=== PATIENT | male | born 1975 | race Caucasian/White ===

== ENCOUNTER 2017-10-16 10:35 | Inpatient (IN) | payer OTHER ==
[~2017-10-16] VITALS: Ht 185.4 cm; Wt 99.5 kg
[2017-10-16 10:47] LABS: BASOPHIL (%) 0.6 % (0-1); EOSINOPHIL (%) 1.7 % (0-5); EOSINOPHIL COUNT 0.1 K/uL (0-0.3); HEMOGLOBIN 15.3 G/DL (12.5-16.6); IMMATURE GRANULOCYTE (%) 1.8 % (0.0-0.7); LYMPHOCYTE COUNT 2.2 K/uL (1.0-2.8); MCH 30.3 PG (29.0-34.0); MCHC 34.8 G/DL (30.0-36.0); MCV 87.1 FL (86-99); MONOCYTE (%) 6.4 % (3-12); MONOCYTE COUNT 0.4 K/uL (0-0.8); NEUTROPHIL (%) 56.5 % (45-76); NEUTROPHIL COUNT 3.7 K/uL (1.8-6.4); PLATELET COUNT 226 K/uL (156-360); RBC DIS.WIDTH-CV 12.4 % (11.8-14.6); RBC DIS.WIDTH-SD 39.6 % (39-53); RED BLOOD COUNT 5.05 M/uL (4.00-5.50); WHITE BLOOD COUNT 6.6 K/uL (4.1-10.2)
[2017-10-16 10:59] LABS: AMYLASE 32 IU/L (1-118); CHLORIDE 106 mEq/L (99-109); POTASSIUM 3.9 mEq/L (3.7-5.4); SODIUM 138 mEq/L (136-147)
[2017-10-16 11:01] LABS: GLUCOSE 120 mg/dL (70-99)
[2017-10-16 11:04] LABS: CREATININE 1.1 mg/dL (0.6-1.3); GFR ESTIMATE (CALCULATED) > 59 mL/min/ (58.99-99999); SERUM ETHYL ALCOHOL < 10 mg/dL
[2017-10-16 11:05] LABS: UREA NITROGEN (BUN) 16 mg/dL (9-23)
[2017-10-16 11:07] LABS: LIPASE 28 U/L (1.0-51.0)
[2017-10-16 17:03] VITALS: BP 124/80
[2017-10-16 19:55] VITALS: BP 125/78
[2017-10-16 23:39] VITALS: BP 136/89
[2017-10-17 03:58] VITALS: BP 144/81
[2017-10-17 06:30] LABS: HEMATOCRIT 41.1 % (38.0-50.0); HEMOGLOBIN 13.8 G/DL (12.5-16.6); MCH 30.5 PG (29.0-34.0); MCHC 33.6 G/DL (30.0-36.0); MCV 90.7 FL (86-99); PLATELET COUNT 163 K/uL (156-360); RBC DIS.WIDTH-CV 12.7 % (11.8-14.6); RBC DIS.WIDTH-SD 42.5 % (39-53); RED BLOOD COUNT 4.53 M/uL (4.00-5.50); WHITE BLOOD COUNT 8.6 K/uL (4.1-10.2)
[2017-10-17 07:09] LABS: ALBUMIN 3.8 G/DL (3.2-4.8); ALKALINE PHOSPHATASE 48 IU/L (3-129); ALT (GPT) 14 IU/L (3-49); AST (GOT) 22 IU/L (2-34); CHLORIDE 105 MEQ/L (99-109); CREATININE 0.9 MG/DL (0.6-1.3); GFR ESTIMATE (CALCULATED) > 59 mL/min/ (58.99-99999); GLUCOSE 108 mg/dL (70-99); POTASSIUM 4.2 MEQ/L (3.7-5.4); SODIUM 138 MEQ/L (136-147); TOTAL BILIRUBIN 0.9 MG/DL (0.0-1.0); TOTAL PROTEIN 5.9 G/DL (6.4-8.3); UREA NITROGEN (BUN) 18 mg/dL (9-23)
[2017-10-17 08:00] VITALS: BP 137/83
[2017-10-17 11:05] VITALS: BP 130/85
[2017-10-17 17:53] VITALS: BP 120/70
[2017-10-17 19:52] VITALS: BP 123/82
[2017-10-17 20:57] LABS: APPEARANCE TURBID ((CLEAR)); BILIRUBIN NEGATIVE; BLOOD SMALL; COLOR YELLOW ((YELLOW)); GLUCOSE (STRIP) 150; KETONES 5; LEUKOCYTES NEGATIVE; NITRITE NEGATIVE; PROTEIN (STRIP) 30; SPECIFIC GRAVITY 1.036 (1.000-1.030); UROBILINOGEN 0.2 MG/DL (0.2-1.0)
[2017-10-17 21:12] LABS: BACTERIA NONE SEEN /HPF; EPITHELIAL CELLS NONE SEEN /HPF; MUCUS 1+ /LPF; UCUL ADDED? NO; WHITE BLOOD CELLS NONE SEEN /HPF (0-5)
[2017-10-18] VITALS (7 sets, daily range): BP systolic 121–152; BP diastolic 63–80
[2017-10-18 06:38] LABS: HEMATOCRIT 33.6 % (38.0-50.0); MCH 29.6 PG (29.0-34.0); MCV 89.6 FL (86-99); PLATELET COUNT 146 K/uL (156-360); RBC DIS.WIDTH-CV 12.7 % (11.8-14.6); RBC DIS.WIDTH-SD 41.8 % (39-53); RED BLOOD COUNT 3.75 M/uL (4.00-5.50); WHITE BLOOD COUNT 9.7 K/uL (4.1-10.2)
[2017-10-18 06:39] LABS: HEMOGLOBIN 11.1 G/DL (12.5-16.6)
[2017-10-19 07:34] VITALS: BP 129/82
[2017-10-19 16:19] VITALS: BP 138/77
[2017-10-19 19:47] VITALS: BP 135/62
[2017-10-19 23:17] VITALS: BP 122/63
[2017-10-20 03:21] VITALS: BP 105/86
[2017-10-20] MEDS ORDERED: ENDOCET 5-3251 EACH PO (07:43)
[2017-10-20 08:46] VITALS: BP 138/98
[2017-10-20] MEDS ORDERED: MIRALAX119 GM PO (08:46)
[2017-10-20] MEDS ORDERED: DOCUSATE SODIU100 MG PO (08:46)
[2017-10-20] MEDS ORDERED: ONDANSETRON ODT4 MG PO (09:27)
[2017-10-20] MEDS ORDERED: FLEXERIL5 MG PO (09:27)
[2017-10-20 11:55] VITALS: BP 129/84
== END 2017-10-20 16:44 | disposition home health service (06) | DRG 460 ==
LOC: EME 10:35 → 3EAST 14:24 → EDOF 14:24 → ENRESERV 15:01 → 3EAST 16:27
PROVIDERS: Emergency Medicine; Neurological Surgery; Surgery
PROC: 0SG0071 Fusion of Lumbar Vertebral Joint with Autologous Tissue Substitute, Posterior Approach, Posterior Column, Open Approach (ICD-10-PCS; principal; 2017-10-17)
DX: S32.022A Unstable burst fracture of second lumbar vertebra, initial encounter for closed fracture (principal); S42.002A Fracture of unspecified part of left clavicle, initial encounter for closed fracture; V29.9XXA Motorcycle rider (driver) (passenger) injured in unspecified traffic accident, initial encounter; M41.9 Scoliosis, unspecified; G89.11 Acute pain due to trauma; K43.9 Ventral hernia without obstruction or gangrene; M51.27 Other intervertebral disc displacement, lumbosacral region; S30.810A Abrasion of lower back and pelvis, initial encounter
CPT/HCPCS: 70450; 71045; 71260; 72020; 72125; 72129; 72132; 72148; 72170; 74177; 76000; 80048; 80053; 81003; 82150; 83690; 85025; 85027; 86850; 86900; 86901; 93005; 97530 GP; 99281; 99285; G0480; J0330; J0690; J1100; J1170; J1580; J1885; J2270; J2405; J2550; J2710; J3010; J3370; J3480; J7120; J7643; Q0169